=== PATIENT | female | born 2000 | race Two or more races ===

== ENCOUNTER 2024-12-12 10:45 | Inpatient (IN) | payer OTHER ==
[2024-12-12] MEDS ORDERED: SYNTHROID50 MCG PO (11:42)
[2024-12-12] MEDS ORDERED: SINGULAIR10 MG PO (11:42)
[2024-12-12] MEDS ORDERED: METFORMIN HCL500 M3 PO (11:42)
[2024-12-16] MEDS ORDERED: PERCOCET 5-3251 EACH PO (09:31)
[2024-12-16] MEDS ORDERED: MEDROLPACK PO (09:31)
[2024-12-16] MEDS ORDERED: AMOX-CLAV 875-1 EACH PO (09:31)
[2024-12-16] MEDS ORDERED: COLACE100 MG PO (09:31)
[2024-12-16] MEDS ORDERED: ZOFRAN8 MG PO (09:32)
[2024-12-16] MEDS ORDERED: GABAPENTIN100 M2 PO (09:32)
[2024-12-16] MEDS ORDERED: NEURONTIN800 MG PO (09:32)
[2024-12-16] MEDS ORDERED: METHYLPREDNISOLONE SOD SUCC 125 MG VIAL ONE ×2 (10:08→15:17)
[2024-12-16] MEDS ORDERED: CEFAZOLIN SODIUM 1,000 MG VIAL ONE ×2 (10:08→15:18)
[2024-12-16] MEDS ORDERED: TRANEXAMIC ACID 100MG/1ML (1000MG) AMPUL IV ONE (10:08)
[2024-12-16] MEDS ORDERED: VANCOMYCIN HCL 1,000 MG VIAL ONE ×2 (10:08→21:26)
[2024-12-16] MEDS ORDERED: METHYLPREDNISOLONE ACETATE 80 MG/ML VIAL ONE (10:19)
[2024-12-16] MEDS ORDERED: ENALAPRILAT DIHYDRATE 1.25 MG/ML VIAL IV PRN (12:30)
[2024-12-16] MEDS ORDERED: 0.9 % SODIUM CHLORIDE 1,000 ML IV SCH (12:30)
[2024-12-16] MEDS ORDERED: PROMETHAZINE HCL 50 MG/ML AMPUL IM PRN (12:30)
[2024-12-16] MEDS ORDERED: MORPHINE SULFATE 4 MG/ML VIAL IV ONE ×2 (12:40→13:40)
[2024-12-16] MEDS ORDERED: DOCUSATE SODIUM 100MG CAP PO SCH (13:00)
[2024-12-16] MEDS ORDERED: MORPHINE SULFATE 2 MG,MORPHINE SULFATE 4 MG IV SCH (13:00)
[2024-12-16] MEDS ORDERED: MORPHINE SULFATE 4 MG/ML VIAL IV SCH (13:00)
[2024-12-16 16:48] VITALS: BP 173/108; O2SAT 97
[2024-12-16] MEDS ORDERED: MONTELUKAST SODIUM 10 MG TABLET PO SCH (17:00)
[2024-12-16] MEDS ORDERED: METHYLPREDNISOLONE SOD SUCC 125 MG VIAL IV SCH (17:00)
[2024-12-16] MEDS ORDERED: ALBUTEROL SULFATE 3 ML/2.5 MG AMPUL.NEB IH SCH (17:00)
[2024-12-16] MEDS ORDERED: FAMOtidine 20 MG TABLET PO SCH (17:00)
[2024-12-16] MEDS ORDERED: CEFAZOLIN SODIUM 1,000 MG in 0.9 % SODIUM CHLORIDE 50 ML IV SCH (17:00)
[2024-12-16] MEDS ORDERED: ACETAMINOPHEN 500 MG GEL..CAP PO SCH (18:00)
[2024-12-16] MEDS ORDERED: GABAPENTIN 800 MG TABLET PO SCH (21:00)
[2024-12-16] MEDS ORDERED: VANCOMYCIN HCL 1,000 MG VIAL IV SCH (21:00)
[2024-12-16] MEDS ORDERED: ZOLPIDEM TARTRATE 10 MG TABLET PO SCH (21:00)
[2024-12-16 22:25] VITALS: BP 157/81; O2SAT 97
[2024-12-17] MEDS ORDERED: SODIUM CHLORIDE 0.45 % 1,000 ML IV SCH
[2024-12-17 03:33] VITALS: BP 130/86
[2024-12-17] MEDS ORDERED: LEVOTHYROXINE SODIUM 50 MCG TABLET PO SCH (06:00)
[2024-12-17] MEDS ORDERED: OxyCODONE HCL/APAP UD (PERCOCET) PO PRN (06:01)
[2024-12-17] MEDS ORDERED: VANCOMYCIN HCL 1,000 MG VIAL ONE ×2 (07:35→16:36)
[2024-12-17 08:00] VITALS: BP 142/88
[2024-12-17 08:46] LABS: HEMATOCRIT 38.6 % (36.0-45.00); HEMOGLOBIN 13.2 g/dL (12.0-15.00); MEAN CELL VOLUME 84.2 fL (80.00-100.00); MEAN CORPUSCULAR HEMOGLOBIN 28.7 pg (27.00-32.0); MEAN CORPUSCULAR HGB CONC 34.1 g/dl (32.0-36.0); PLATELET COUNT 244 K/uL (150-450); RED BLOOD COUNT 4.59 M/uL (4.00-6.00); RED CELL DISTRIBUTION WIDTH 13.4 % (11.5-14.5)
[2024-12-17] MEDS ORDERED: TAMSULOSIN HCL 0.4 MG CAP PO SCH (09:00)
[2024-12-17] MEDS ORDERED: MetFORMIN HCL 500 MG TABLET PO SCH (09:00)
[2024-12-17 09:16] LABS: CALCIUM 8.4 mg/dL (8.5-10.1); CREATININE SERUM 0.63 mg/dL (0.55-1.02); GFR 115.14; POTASSIUM 3.99 mEq/L (3.5-5.1)
[2024-12-17 16:00] VITALS: BP 168/99; O2SAT 99
[2024-12-18] VITALS: BP 108/70; O2SAT 96
[2024-12-18] MEDS ORDERED: VANCOMYCIN HCL 1,000 MG VIAL ONE (07:26)
[2024-12-18 08:08] VITALS: BP 121/79; O2SAT 97
== END 2024-12-18 13:25 | disposition home or self-care (01) | DRG 428 ==
LOC: O/R 12-16 04:30 → SURH 12-16 10:30 → O/R 12-16 13:58 → SURH 12-16 14:01
PROVIDERS: ADMIT Orthopaedic Surgery Orthopaedic Surgery of the Spine; ATTEND Orthopaedic Surgery Orthopaedic Surgery of the Spine
PROC: XRGC0R7 Fusion of 2 or more Lumbar Vertebral Joints using Custom-Made Anatomically Designed Interbody Fusion Device, Open Approach, New Technology Group 7 (ICD-10-PCS; 2024-12-16)
PROC: 0ST20ZZ Resection of Lumbar Vertebral Disc, Open Approach (ICD-10-PCS; 2024-12-16)
PROC: 07DR0ZZ Extraction of Iliac Bone Marrow, Open Approach (ICD-10-PCS; 2024-12-16)
PROC: 4A1104G Monitoring of Peripheral Nervous Electrical Activity, Intraoperative, Open Approach (ICD-10-PCS; 2024-12-16)
PROC: 0SG1071 Fusion of 2 or more Lumbar Vertebral Joints with Autologous Tissue Substitute, Posterior Approach, Posterior Column, Open Approach (ICD-10-PCS; principal; 2024-12-16 10:30)
DX: M48.062 Spinal stenosis, lumbar region with neurogenic claudication (principal); M51.369 Other intervertebral disc degeneration, lumbar region without mention of lumbar back pain or lower extremity pain